=== PATIENT | female | born 1975 | race Caucasian/White ===

== ENCOUNTER → 2018-09-23 | Outpatient (REF) | payer OTHER | LOC: M SFHCCLAY 08:24 | DX: B18.2 Chronic viral hepatitis C (principal) ==

== ENCOUNTER → 2018-11-14 | Outpatient (REF) | payer OTHER ==
[2018-11-14 14:21] LABS: ALBUMIN 3.5 GM/DL (3.2-5.2); BILIRUBIN,DIRECT 0.1 MG/DL (0.0-0.2); BILIRUBIN,TOTAL 0.2 MG/DL (0.2-1.0)
[2018-11-19 00:06] LABS: HEPATITIS C QUANTITATION 20 IU/mL (.)
== END ==
LOC: M SFHCPLAZ 11:32
PROVIDERS: ATTEND Internal Medicine Infectious Disease
DX: B18.2 Chronic viral hepatitis C (principal)